=== PATIENT | male | born 1955 | race Caucasian/White ===

== ENCOUNTER 2017-11-24 09:00 | Inpatient (IN) | payer OTHER ==
[~2017-11-24 09:00] MED LIST: CEFAZOLIN SODIUM 2GM/D5W 50 X1 IVPB; SOD CHLORIDE 0.9% 1,000 ML IV
[2017-11-24] MEDS ORDERED: BUPIVACAINE 0.5% (SDV) 30 ML INJ (12:44)
[2017-11-24] MEDS ORDERED: PROPOFOL 20 ML (12:53)
[2017-11-24] MEDS ORDERED: MIDAZOLAM 1 MG/ML 2 ML INJ (12:53)
[2017-11-24] MEDS ORDERED: CEFAZOLIN 1 GM INJ (12:53)
[2017-11-24] MEDS ORDERED: ROCURONIUM 50 MG INJ (12:53)
[2017-11-24] MEDS ORDERED: ROPIVACAINE 0.5 % 30 ML VIAL (12:54)
[2017-11-24] MEDS: POLYMYXIN/BACITRACIN 1L IRRIG (13:42)
[2017-11-24] MEDS ORDERED: METOCLOPRAMIDE 10 MG INJ (13:43)
[2017-11-24] MEDS ORDERED: KETOROLAC 30 MG INJ (13:43)
[2017-11-24] MEDS ORDERED: ACETAMINOPHEN 1000MG/100ML IV 100 ML (13:43)
[2017-11-24] MEDS ORDERED: DEXAMETHASONE 4 MG/ML 1 ML INJ (13:43)
[2017-11-24] MEDS ORDERED: ONDANSETRON 4 MG INJ (13:43)
[2017-11-24] MEDS ORDERED: LABETALOL HCL 20MG INJ (13:45)
[2017-11-24] MEDS ORDERED: SUGAMMADEX SODIUM 200 MG/2 ML VIAL IV ×2 (13:49→14:53)
[2017-11-24] MEDS ORDERED: EPHEDrine SULFATE 50 MG/5 ML SYG IV (15:30)
[2017-11-24] MEDS ORDERED: DIPHENHYDRAMINE 50 MG INJ IV (15:30)
[2017-11-24] MEDS ORDERED: METOCLOPRAMIDE 10 MG INJ IV (15:30)
[2017-11-24] MEDS ORDERED: HYDROmorphONE (0.2 MG/ML) 10ML SYG IV ×3 (15:30)
[2017-11-24] MEDS ORDERED: FENTAnyl 50 MCG/ML VIAL IV ×3 (15:30)
[2017-11-24] MEDS ORDERED: OXYCODONE/ACETAMINOPHEN (5/325) TAB PO ×2 (15:30)
[2017-11-24] MEDS ORDERED: LABETALOL HCL 20MG INJ IV (15:30)
[2017-11-24] MEDS ORDERED: MEPERIDINE 25 MG INJ IV (15:30)
[2017-11-24] MEDS ORDERED: hydrALAzine 20 MG INJ IV ×2 (15:30→17:00)
[2017-11-24] MEDS ORDERED: ONDANSETRON 4 MG INJ IV ×2 (15:30)
[2017-11-24 17:10] LABS: ADD MAN DIFF? NO
[2017-11-24 17:17] LABS: ABNORMAL IP MESSAGE 1; HEMATOCRIT 42.2 % (42.0-52.0); HEMOGLOBIN 14.2 g/dl (14.0-18.0); MEAN CORPUSCULAR HEMOGLOBIN 29.1 pg (29.0-33.0); MEAN CORPUSCULAR HGB CONC 33.6 g/dl (32.0-37.0); MEAN CORPUSCULAR VOLUME 86.5 fl (82.0-101.0); PLATELET COUNT 117 10^3/UL (140-415); POSITIVE DIFF @See below; RED BLOOD COUNT 4.88 10^6/ul (4.70-6.10); RED CELL DISTRIBUTION WIDTH 19.1 % (11.5-14.5)
[2017-11-24 17:17] LABS: WHITE BLOOD COUNT 8.1 10^3/ul (4.8-10.8)
[2017-11-24] MEDS: PANTOPRAZOLE (EC) 40 MG TAB PO ×2 (18:00→21:59)
[2017-11-24 19:00] LABS: BAND NEUTROPHILS % (M) 1 % (0-4); BASOPHILS % (M) 1 % (0-2); EOSINOPHILS % (M) 1 % (0-7); LYMPHOCYTES #M 0.3 10^3/ul (0.8-2.9); LYMPHOCYTES % (M) 4 % (15-51); MONOCYTE #M 0.2 10^3/ul (0.3-0.9); MONOCYTES % (M) 3 % (0-11); PLATELET ESTIMATE DECREASED; REACTIVE LYMPHOCYTES% (M) 1 % (0-0); SEG NEUT #M 7.2 10^3/ul (1.6-7.5); SEGMENTED NEUTROPHILS (M) % 89 % (39-77); SMUDGE%M 1 % (0-0)
[2017-11-24] MEDS: morphine 2 MG INJ IV (21:56)
[2017-11-24] MEDS: TAMSULOSIN (SR) 0.4 MG CAP PO (21:59)
[2017-11-24] MEDS: D5W-0.45 NACL + KCL 20 MEQ 1,000 ML IV (22:27)
[2017-11-25] MEDS: morphine 2 MG INJ IV ×4 (05:24→21:58)
[2017-11-25] MEDS: PANTOPRAZOLE (EC) 40 MG TAB PO ×2 (05:24→18:26)
[2017-11-25 05:54] LABS: ADD MAN DIFF? NO
[2017-11-25 06:12] LABS: WHITE BLOOD COUNT 6.6 10^3/ul (4.8-10.8)
[2017-11-25 06:12] LABS: BASOPHILS % 0.2 % (0.0-2.0); HEMATOCRIT 38.8 % (42.0-52.0); HEMOGLOBIN 12.8 g/dl (14.0-18.0); LYMPHOCYTES # 0.7 10^3/ul (0.8-2.9); MEAN CORPUSCULAR HEMOGLOBIN 28.4 pg (29.0-33.0); MEAN PLATELET VOLUME 9.8 fl (7.4-10.4); MONOCYTE # 0.6 10^3/ul (0.3-0.9); MONOCYTES % 9.2 % (0.0-11.0); NEUTROPHIL # 5.3 10^3/ul (1.6-7.5); PLATELET COUNT 110 10^3/UL (140-415); POSITIVE DIFF @See below; RED BLOOD COUNT 4.51 10^6/ul (4.70-6.10); RED CELL DISTRIBUTION WIDTH 18.5 % (11.5-14.5)
[2017-11-25] MEDS: D5W-0.45 NACL + KCL 20 MEQ 1,000 ML IV ×4 (07:08→16:19)
[2017-11-25] MEDS: DULOXETINE 30 MG CAP DR PO (09:03)
[2017-11-25] MEDS: ASPIRIN 81 MG TAB PO (09:03)
[2017-11-25] MEDS ORDERED: IBUPROFEN 600 MG TAB PO (11:30)
[2017-11-25] MEDS ORDERED: HYDROCODONE/APAP (5/325) TAB PO (16:30)
[2017-11-25] MEDS: TAMSULOSIN (SR) 0.4 MG CAP PO (21:58)
[2017-11-26] MEDS: D5W-0.45 NACL + KCL 20 MEQ 1,000 ML IV ×2 (01:48→10:00)
[2017-11-26] MEDS: PANTOPRAZOLE (EC) 40 MG TAB PO ×2 (05:36→19:03)
[2017-11-26] MEDS: morphine 2 MG INJ IV ×3 (05:39→13:14)
[2017-11-26 06:22] LABS: ADD MAN DIFF? NO
[2017-11-26 06:33] LABS: WHITE BLOOD COUNT 6.1 10^3/ul (4.8-10.8)
[2017-11-26 06:33] LABS: ABNORMAL IP MESSAGE 1; BASOPHIL # 0.1 10^3/ul (0.0-0.1); BASOPHILS % 0.8 % (0.0-2.0); EOSINOPHILS # 0.2 10^3/ul (0.0-0.5); EOSINOPHILS % 2.8 % (0.0-7.0); HEMATOCRIT 37.3 % (42.0-52.0); HEMOGLOBIN 12.2 g/dl (14.0-18.0); LYMPHOCYTES # 0.9 10^3/ul (0.8-2.9); LYMPHOCYTES % 15.3 % (15.0-51.0); MEAN CORPUSCULAR HGB CONC 32.7 g/dl (32.0-37.0); MEAN CORPUSCULAR VOLUME 88.6 fl (82.0-101.0); MEAN PLATELET VOLUME 9.9 fl (7.4-10.4); MONOCYTE # 0.5 10^3/ul (0.3-0.9); MONOCYTES % 8.9 % (0.0-11.0); NEUTROPHIL # 4.4 10^3/ul (1.6-7.5); NEUTROPHILS % 71.9 % (39.0-77.0); PLATELET COUNT 93 10^3/UL (140-415); POSITIVE DIFF @See below; RED BLOOD COUNT 4.21 10^6/ul (4.70-6.10); RED CELL DISTRIBUTION WIDTH 19.1 % (11.5-14.5)
[2017-11-26 06:58] LABS: ANION GAP 13 (8-16); BLOOD UREA NITROGEN 9 mg/dl (7-20); CALCIUM 7.9 mg/dl (8.4-10.2); CARBON DIOXIDE 31 mmol/L (21-31); CHLORIDE 102 mmol/L (97-110); GLUCOSE 108 mg/dl (70-220); POTASSIUM 4.2 mmol/L (3.5-5.1); SODIUM 142 mmol/L (135-144)
[2017-11-26] MEDS: DULOXETINE 30 MG CAP DR PO (08:32)
[2017-11-26] MEDS: ASPIRIN 81 MG TAB PO (08:32)
[2017-11-26] MEDS ORDERED: morphine LIQ (10 MG/5 ML) CUP PO (15:30)
== END 2017-11-26 20:05 | disposition home or self-care (01) | DRG 352 ==
LOC: SDS 09:00 → REC 16:08 → PP2 21:17
PROVIDERS: Surgery Surgical Oncology
PROC: 0YU60JZ Supplement Left Inguinal Region with Synthetic Substitute, Open Approach (ICD-10-PCS; principal; 2017-11-24 12:00)
DX: K40.30 Unilateral inguinal hernia, with obstruction, without gangrene, not specified as recurrent (principal); I10 Essential (primary) hypertension; F32.9 Major depressive disorder, single episode, unspecified; G89.18 Other acute postprocedural pain; E78.5 Hyperlipidemia, unspecified; F41.9 Anxiety disorder, unspecified; N40.0 Benign prostatic hyperplasia without lower urinary tract symptoms; Z87.11 Personal history of peptic ulcer disease; Z87.891 Personal history of nicotine dependence
CPT/HCPCS: 80048; 85025; 88302